=== PATIENT | male | born 1990 | race Caucasian/White ===

== ENCOUNTER 2020-06-29 09:32 | Emergency (ER) | payer BC ==
[~2020-06-29] VITALS: Ht 180.3 cm; Wt 77.1 kg
[~2020-06-29 09:32] MED LIST: ANTOXYBENA OT; AZIT250 PO; CETI10; HYDACE5 PO; OTC DECONGESTANT; PSEU30 PO
== END 2020-06-29 11:05 | disposition home or self-care (01) ==
LOC: ER 09:32
DX: T65.891A Toxic effect of other specified substances, accidental (unintentional), initial encounter (principal); T45.0X1A Poisoning by antiallergic and antiemetic drugs, accidental (unintentional), initial encounter; G25.2 Other specified forms of tremor; R53.81 Other malaise; R53.1 Weakness; R11.2 Nausea with vomiting, unspecified
CPT/HCPCS: 96374; 99283-25; J0780

== ENCOUNTER 2024-03-16 20:40 | Emergency (ER) | payer BC ==
[~2024-03-16] VITALS: Ht 180.3 cm; Wt 81.7 kg
[2024-03-16 21:03] VITALS: BP 139/92
[2024-03-16] MEDS ORDERED: HYDROcodone 5-APAP 325 TAB PO ONE (21:45)
[2024-03-16] MEDS ORDERED: Amoxicillin/Clavulanate K 875 MG Tab PO ONE (21:45)
[2024-03-16] MEDS ORDERED: AMOCLA875 PO (21:45)
== END 2024-03-16 21:55 | disposition home or self-care (01) ==
LOC: ER 20:40
DX: K08.89 Other specified disorders of teeth and supporting structures (principal)
CPT/HCPCS: 99282; A9270